=== PATIENT | female | born 1990 | race Caucasian/White ===

== ENCOUNTER 2017-02-22 01:17 | Emergency (ER) | payer MEDICAID ==
--- NOTE | 2017-02-22 01:44 | ER Document Report ---
ED GI/ - General Chief Complaint: Rectal Pain Stated Complaint: RECTAL PAIN Time Seen by Provider: 02/22/17 01:44 Mode of Arrival: Ambulatory Information source: Patient TRAVEL OUTSIDE OF THE [place] IN LAST 30 DAYS: No - Related Data Allergies/Adverse Reactions: No Known Allergies Allergy (Unverified 02/22/17 01:25) Past Medical History - Social History Patient has suicidal ideation: No Patient has homicidal ideation: No Renal/ Medical History: Denies: Hx Peritoneal Dialysis Physical Exam - Vital signs Vitals: Temp Pulse Resp BP Pulse Ox 97.8 F 88 18 129/85 H 97 02/22/17 01:25 02/22/17 01:25 02/22/17 01:25 02/22/17 01:25 02/22/17 01:25 Course - Vital Signs Vital signs: Temp Pulse Resp BP Pulse Ox 97.8 F 88 18 129/85 H 97 02/22/17 01:25 02/22/17 01:25 02/22/17 01:25 02/22/17 01:25 02/22/17 01:25
[2017-02-22] MEDS ORDERED: LIDOCAINE 2% JELLY 30 ML TUBE TOP ONE (01:58)
--- NOTE | 2017-02-22 01:58 | ER Document Report ---
HPI - HPI Patient complains to provider of: Anal itching Onset: Other - 2 days Onset/Duration: Sudden, Intermittent, Persistent Pain Level: 3 Context: 26-year-old normally healthy female is complaining of anal itching for 2 days. It woke her up at 11 PM. No history of pinworms. No rash. Hemorhoid during . No labia introitus of vagina itching. No abdominal pain. No fever or chills. Mild diarrhea after the onset of anal itching. She did have a painful bm few days ago. No anal bleeding Associated Symptoms: None Exacerbated by: Denies Relieved by: Denies Similar symptoms previously: No Recently seen / treated by doctor: No - ROS ROS below otherwise negative: Yes Systems Reviewed and Negative: Yes All other systems reviewed and negative - DERM Skin Color: Normal Past Medical History - General Information source: Patient - Social History Smoking Status: Never Smoker Frequency of alcohol use: None Drug Abuse: None Lives with: Spouse/Significant other Family History: Reviewed & Not Pertinent Patient has suicidal ideation: No Patient has homicidal ideation: No - Medical History Medical History: Negative Renal/ Medical History: Denies: Hx Peritoneal Dialysis Surgical Hx: Negative Vertical Provider Document - CONSTITUTIONAL Agree With Documented VS: Yes Exam Limitations: No Limitations General Appearance: No Apparent Distress - INFECTION CONTROL TRAVEL OUTSIDE OF THE [place] IN LAST 30 DAYS: No - HEENT HEENT: Normocephalic - NECK Neck: Supple - RESPIRATORY Respiratory: Breath Sounds Normal, No Respiratory Distress O2 Sat by Pulse Oximetry: 97 - CARDIOVASCULAR Cardiovascular: Regular Rate, Regular Rhythm - GI/ABDOMEN Gastrointestinal: Abdomen Soft, Abdomen Non-Tender Notes: anal canal hemorrhoids not thrombosed, ? area of skin healing, no worms or eggs - MUSCULOSKELETAL/EXTREMETIES Musculoskeletal/Extremeties: JUDY MCKEON - NEURO Level of Consciousness: Awake, Alert - DERM Integumentary: Warm, Dry, No Rash Course - Vital Signs Vital signs: Temp Pulse Resp BP Pulse Ox 97.8 F 88 18 129/85 H 97 02/22/17 01:25 02/22/17 01:25 02/22/17 01:25 02/22/17 01:25 02/22/17 01:25 Discharge - Discharge Clinical Impression: Internal hemorrhoid, Anal pruritus Condition: Good Disposition: HOME, SELF-CARE Instructions: Hemorrhoids ([facility]), Steroid Medication Additional Instructions: see your doctor if this persists since you had anal pain with hard bowel movement few days ago, there may be some anal tissue that was scratched and is now healing. Prescriptions: Hydrocortisone Acetate [Anusol Hc 25 mg Supp.rect] 1 supp.rect CA BID #[id number] supp.rect Forms: Return to Work
[2017-02-22] MEDS ORDERED: LIDOCAINE 2% JELLY 30 ML TUBE ONE (02:23)
[2017-02-22 02:52] VITALS: BP 127/79
== END 2017-02-22 02:50 | disposition home or self-care (01) ==
LOC: ER 01:17
DX: L29.0 Pruritus ani (principal); R19.7 Diarrhea, unspecified; K64.8 Other hemorrhoids
CPT/HCPCS: 99283